=== PATIENT | female | born 1995 | race Asian ===

== ENCOUNTER 2024-04-08 08:31 | Outpatient (REF) | payer OTHER, SELFPAY ==
--- NOTE | ~2024-04-08 | US_ITS ---
EXAMINATION: US PELVIS CLINICAL INFORMATION: Excessive and frequent menstruation, irregular menses, last menstrual period March 03 with bleeding for 2 weeks. Patient denies pain. COMPARISON: None available. TECHNIQUE: Ultrasound of the pelvis is performed using both transabdominal and transvaginal transducers along with Doppler. Per manager combination, transvaginal ultrasound images were attempted; however, the patient was unable to tolerate exam and therefore transvaginal portion of the exam could not be performed. FINDINGS: The anteverted uterus measures 9.1 x 3.2 x 5.2 cm. Endometrial thickness is 8 mm. Per manager combination, transvaginal ultrasound images were attempted; however, the patient was unable to tolerate exam and therefore transvaginal portion of the exam could not be performed. Limited visualization due to bowel gas. Right ovary measures 2.2 x 2.9 x 2.4 cm. 2.3 x 1.4 x 1.8 cm right ovarian cyst, likely physiologic. There is no specific indication for additional imaging at this time. 3.6 x 1.6 x 3.3 cm right ovarian cyst is likely simple, although visualization is limited due to bowel gas. 2.2 x 1.6 x 1.7 cm left ovarian cyst is likely simple, although visualization is limited due to bowel gas. US/US pelvic complete IMPRESSION: 1. Endometrial thickness is 8 mm. 2. Bilateral ovarian cysts measuring 2.3 cm on the right and 2.2 cm on the left, are likely simple, although visualization limited due to bowel gas and inability of patient to tolerate transvaginal portion of the exam. There is no specific indication for additional imaging at this time. This study was presented today to April 08, 2024 for interpretation. Stat results provided at this time as requested by referring provider. Electronically signed by: Alexia Moran MD 04/08/2024 01:43 PM EST
== END 2024-04-08 08:32 | disposition home or self-care (01) ==
LOC: HO.UMASIMG 08:31
PROVIDERS: Visit Provider Family Medicine
DX: N92.1 Excessive and frequent menstruation with irregular cycle (principal)
CPT/HCPCS: 76856